=== PATIENT | female | born 1940 | race African-American/Black ===

== ENCOUNTER 2020-06-03 18:01 | Inpatient (IN) | payer OTHER ==
[~2020-06-03] VITALS: Ht 165.1 cm; Wt 70.0 kg
[2020-06-03 18:40] LABS: Basophils # (auto) 0 10 ^3/uL (0-0.2); Basophils % (auto) 0.6 % (0.0-2.0); Eosinophils # (auto) 0.2 10 ^3/uL (0-0.8); Eosinophils % (auto) 2.1 % (0.0-7.0); Hematocrit 41.3 % (36.0-46.0); Hemoglobin 13.5 g/dL (12.2-16.2); Lymphocytes # (auto) 1.4 10 ^3/uL (0.4-5.4); Lymphocytes % (auto) 18.6 % (10.0-50.0); Mean Corpuscular Hemoglobin 33.1 pg (28.0-32.0); Mean Corpuscular Hgb Conc. 32.7 g/dL (32.0-36.0); Mean Corpuscular Volume 101.2 fL (80.0-100.0); Monocytes # (auto) 0.5 10 ^3/uL (0-1.3); Monocytes % (auto) 6.6 % (0.0-12.0); Neutrophils # (auto) 5.3 10 ^3/uL (1.6-8.6); Neutrophils % (auto) 72.1 % (37.0-80.0); Nucleated Red Blood Cells % 0.1 %; Platelet Count (auto) 233 10^3/uL (140-450); Red Blood Cells 4.08 10^6/uL (4.0-5.20); Red Cell Distribution Width 13.5 % (11.8-14.3); White Blood Cell 7.4 10^3/uL (4.4-10.8)
[2020-06-03 19:31] LABS: Partial Thromboplastin Time 25.1 sec (23.0-31.2)
[2020-06-03 19:49] LABS: Albumin 3.7 g/dL (3.4-5.0); Calcium 9.3 mg/dL (8.5-10.1); Potassium 4.1 mmol/L (3.5-5.1)
[2020-06-03 19:54] LABS: BUN/Creatinine Ratio 24.5; Bilirubin, Total 0.5 mg/dL (0.2-1.0); Total Protein 7.3 g/dL (6.4-8.2)
[2020-06-04] MEDS ORDERED: HYDROcodone-ACET 5/325MG TAB PO PRN (02:15)
[2020-06-04] MEDS ORDERED: NITROGLYCERIN 0.4 MG SL TAB SL PRN (02:15)
[2020-06-04] MEDS ORDERED: DOCUSATE SOD 100 MG CAP PO PRN (02:15)
[2020-06-04] MEDS ORDERED: SODIUM CHLORIDE 0.9% 1,000 ML IV SCH (02:15)
[2020-06-04] MEDS ORDERED: ONDANSETRON HCL 4 MG/2 ML VIAL IV PRN (02:15)
[2020-06-04] MEDS ORDERED: MORPHINE SULF INJ 2 MG/ML SYRINGE 1ML IV PRN ×2 (02:15→13:15)
[2020-06-04] MEDS ORDERED: ACETAMINOPHEN 325 MG TAB PO PRN (02:15)
[2020-06-04] MEDS ORDERED: MORPHINE SULFATE 4 MG/ML SYR/VIAL IV PRN (02:15)
[2020-06-04 04:00] LABS: Basophils # (auto) 0 10 ^3/uL (0-0.2); Basophils % (auto) 0.4 % (0.0-2.0); Eosinophils # (auto) 0.1 10 ^3/uL (0-0.8); Eosinophils % (auto) 1.6 % (0.0-7.0); Hematocrit 38.7 % (36.0-46.0); Hemoglobin 12.9 g/dL (12.2-16.2); Lymphocytes # (auto) 1.4 10 ^3/uL (0.4-5.4); Lymphocytes % (auto) 15.7 % (10.0-50.0); Mean Corpuscular Hemoglobin 33.8 pg (28.0-32.0); Mean Corpuscular Hgb Conc. 33.4 g/dL (32.0-36.0); Mean Corpuscular Volume 101.3 fL (80.0-100.0); Monocytes # (auto) 0.6 10 ^3/uL (0-1.3); Monocytes % (auto) 6.6 % (0.0-12.0); Neutrophils # (auto) 6.9 10 ^3/uL (1.6-8.6); Neutrophils % (auto) 75.7 % (37.0-80.0); Nucleated Red Blood Cells % 0.1 %; Platelet Count (auto) 216 10^3/uL (140-450); Red Blood Cells 3.83 10^6/uL (4.0-5.20); Red Cell Distribution Width 13.6 % (11.8-14.3); White Blood Cell 9.2 10^3/uL (4.4-10.8)
[2020-06-04 04:17] LABS: Potassium 3.1 mmol/L (3.5-5.1)
[2020-06-04 04:21] LABS: Albumin 3.3 g/dL (3.4-5.0); BUN/Creatinine Ratio 23.2
[2020-06-04 04:59] LABS: Bilirubin, Total 0.6 mg/dL (0.2-1.0); Total Protein 6.5 g/dL (6.4-8.2)
[2020-06-04] MEDS ORDERED: PANTOPRAZOLE 40 MG/10 ML VIAL INJ IV SCH (10:00)
--- NOTE | 2020-06-04 13:15 | NUR ---
Telemetry admit from ER JOSEFINA WILLIS admitted to Telemetry unit after verbal report received. Patient oriented to Jessika Mendenhall, primary RN, unit, room, bed, and unit policies regarding patient care and visiting hours. Patient is awake, alert and oriented X4. No signs or symptoms of shortness of breath, discomfort or pain. Patient now on continuous telemetry monitoring, tele box # 68, sinus bradycardia @ 54 bpm. IV to right forearm, 20 gauge, patent and saline locked. Bed locked, in lowest position ,call light within reach, all questions and concerns addressed, patient verbalized understanding.
--- NOTE | 2020-06-04 13:43 | NUR ---
ROUNDS Dr Yeh at bedside for rounds, new orders received and followed through. Patient updated on plan of care, verbalized understanding.
[2020-06-04] MEDS ORDERED: HCTZ25T PO (13:56)
[2020-06-04] MEDS ORDERED: ATOR1TAB PO (13:56)
[2020-06-04] MEDS ORDERED: ATEN50TA PO (13:56)
[2020-06-04] MEDS ORDERED: POTA10TA32 PO (14:18)
[2020-06-04] MEDS ORDERED: hydrALAZINE HCL 25 MG TAB PO ONE (14:30)
[2020-06-04] MEDS ORDERED: POTASSIUM CHL 10 Meq TABLET PO ONE (14:30)
[2020-06-04] MEDS: POTASSIUM CHL 20MEQ/100ML 100 ML IV SCH ×2 (14:56→15:30)
[2020-06-04 17:00] VITALS: BP 152/83
[2020-06-04] MEDS ORDERED: POTASSIUM CHL 20 Meq TABLET PO ONE (17:30)
[2020-06-04 18:19] VITALS: BP 152/83
[2020-06-04] MEDS ORDERED: ATORVASTATIN 20 MG TAB PO SCH (22:00)
[2020-06-05] MEDS ORDERED: POTASSIUM CHL 10 Meq TABLET PO SCH (10:00)
[2020-06-05] MEDS ORDERED: HCTZ 25 MG TAB PO SCH (10:00)
== END 2020-06-04 19:00 | disposition home or self-care (01) | DRG 378 ==
LOC: ER 18:01 → TELE 18:02 → TELE-WESTW 06-04 12:52
PROVIDERS: ADMIT Nurse Practitioner Family; ATTEND Nurse Practitioner Family
DX: K92.1 Melena (principal); J98.11 Atelectasis; E78.5 Hyperlipidemia, unspecified; E87.6 Hypokalemia; F17.210 Nicotine dependence, cigarettes, uncomplicated; I10 Essential (primary) hypertension; N28.1 Cyst of kidney, acquired; N83.9 Noninflammatory disorder of ovary, fallopian tube and broad ligament, unspecified; N94.89 Other specified conditions associated with female genital organs and menstrual cycle; Z91.041 Radiographic dye allergy status; Z91.013 Allergy to seafood; Z79.899 Other long term (current) drug therapy
CPT/HCPCS: 36415; 74176; 76856; 80053; 82378; 85025; 85610; 85730; 86304; 96361; 96374; C9113; G0378; J3480

== ENCOUNTER 2022-08-06 02:08 | Inpatient (IN) | payer OTHER, MEDICAID ==
[~2022-08-06] VITALS: Ht 170.2 cm; Wt 71.8 kg
[~2022-08-06 02:08] MED LIST: ATEN50TA PO; ATOR-47 PO; HYDR25TA5 PO; POTA10TA32 PO
[2022-08-06] MEDS ORDERED: SODIUM CHLORIDE 0.9% 1,000 ML IV ONE (03:15)
[2022-08-06 03:38] LABS: Basophils # (auto) 0 10 ^3/uL (0-0.2); Basophils % (auto) 0.4 % (0.0-2.0); Eosinophils # (auto) 0.1 10 ^3/uL (0-0.8); Eosinophils % (auto) 0.8 % (0.0-7.0); Hematocrit 39.7 % (36.0-46.0); Hemoglobin 13.4 g/dL (12.2-16.2); Lymphocytes # (auto) 1.1 10 ^3/uL (0.4-5.4); Lymphocytes % (auto) 10.1 % (10.0-50.0); Mean Corpuscular Hemoglobin 33.5 pg (28.0-32.0); Mean Corpuscular Hgb Conc. 33.8 g/dL (32.0-36.0); Mean Corpuscular Volume 99.1 fL (80.0-100.0); Monocytes # (auto) 0.6 10 ^3/uL (0-1.3); Monocytes % (auto) 5.4 % (0.0-12.0); Neutrophils # (auto) 9.3 10 ^3/uL (1.6-8.6); Neutrophils % (auto) 83.3 % (37.0-80.0); Red Blood Cells 4.01 10^6/uL (4.0-5.20); Red Cell Distribution Width 13.5 % (11.8-14.3); White Blood Cell 11.2 10^3/uL (4.4-10.8)
[2022-08-06 03:55] LABS: Albumin 3.7 g/dL (3.4-5.0); Calcium 8.9 mg/dL (8.5-10.1); Potassium 3.5 mmol/L (3.5-5.1)
[2022-08-06 03:58] LABS: BUN/Creatinine Ratio 20.8; Bilirubin, Total 0.4 mg/dL (0.2-1.0)
[2022-08-06 04:02] LABS: INR 0.95 (0.9-1.15); Partial Thromboplastin Time 25.5 sec (24.6-33.4)
[2022-08-06] MEDS ORDERED: PANTOPRAZOLE 40 MG/10 ML VIAL INJ IV ONE (08:15)
[2022-08-06] MEDS ORDERED: NITROGLYCERIN 0.4 MG SL TAB SL PRN (09:45)
[2022-08-06] MEDS ORDERED: MORPHINE SULFATE INJ 2 MG/ml SYRG IV PRN (09:45)
[2022-08-06] MEDS ORDERED: cefTRIAXone 1GM/50ML D5W 50 ML IV ONE (09:45)
[2022-08-06] MEDS ORDERED: metroNIDAZOLE 500MG/100ML 100 ML IV ONE (09:45)
[2022-08-06] MEDS ORDERED: LOSA-39 PO (10:07)
[2022-08-06] MEDS ORDERED: hydrALAZINE HCL 20 MG/ML VL IV PRN (10:30)
[2022-08-06 10:36] LABS: Cholesterol 126 mg/dL (< 200); HDL Cholesterol 77 mg/dL (40-59); LDL Cholesterol 49 mg/dL (< 100); Triglycerides 68 mg/dL (< 150)
[2022-08-06] MEDS: metroNIDAZOLE 500MG/100ML 100 ML IV SCH ×2 (12:14→18:21)
[2022-08-06 18:06] LABS: Hematocrit 35.8 % (36.0-46.0); Hemoglobin 12.4 g/dL (12.2-16.2)
[2022-08-06] MEDS ORDERED: ATORVASTATIN 20 MG TAB PO SCH (22:00)
[2022-08-06] MEDS ORDERED: TEMAZEPAM 15 MG CAP PO ONE (22:15)
[2022-08-06 22:47] VITALS: BP 139/81
[2022-08-06 23:04] VITALS: BP 139/81
[2022-08-07] MEDS: metroNIDAZOLE 500MG/100ML 100 ML IV SCH ×3 (02:27→18:00)
[2022-08-07 04:50] VITALS: BP 110/65
[2022-08-07 06:08] LABS: Basophils # (auto) 0 10 ^3/uL (0-0.2); Basophils % (auto) 0.3 % (0.0-2.0); Eosinophils # (auto) 0 10 ^3/uL (0-0.8); Eosinophils % (auto) 0.2 % (0.0-7.0); Lymphocytes # (auto) 0.9 10 ^3/uL (0.4-5.4); Monocytes # (auto) 0.4 10 ^3/uL (0-1.3); Monocytes % (auto) 5.3 % (0.0-12.0); Neutrophils # (auto) 6.8 10 ^3/uL (1.6-8.6); White Blood Cell 8.1 10^3/uL (4.4-10.8)
[2022-08-07 06:10] LABS: Hematocrit 34.2 % (36.0-46.0); Hemoglobin 11.9 g/dL (12.2-16.2); Lymphocytes % (auto) 11.1 % (10.0-50.0); Mean Corpuscular Hemoglobin 34.2 pg (28.0-32.0); Mean Corpuscular Hgb Conc. 34.7 g/dL (32.0-36.0); Mean Corpuscular Volume 98.7 fL (80.0-100.0); Neutrophils % (auto) 83.1 % (37.0-80.0); Red Blood Cells 3.46 10^6/uL (4.0-5.20); Red Cell Distribution Width 13.5 % (11.8-14.3)
[2022-08-07 06:23] LABS: Potassium 3.5 mmol/L (3.5-5.1)
[2022-08-07 06:36] LABS: Albumin 3.2 g/dL (3.4-5.0); BUN/Creatinine Ratio 23.8; Bilirubin, Total 0.7 mg/dL (0.2-1.0); Calcium 8.8 mg/dL (8.5-10.1); Total Protein 5.7 g/dL (6.4-8.2)
[2022-08-07 08:27] VITALS: BP 133/89
[2022-08-07] MEDS ORDERED: cefTRIAXone 1GM/50ML D5W 50 ML IV SCH (09:00)
[2022-08-07] MEDS ORDERED: LOSARTAN POTASSIUM 50 MG TAB PO SCH (10:00)
[2022-08-07] MEDS ORDERED: HCTZ 25 MG TAB PO SCH (10:00)
[2022-08-07] MEDS ORDERED: ATENOLOL 50 MG TAB PO SCH (10:00)
[2022-08-07] MEDS ORDERED: PATIENTS OWN MEDICATION (Losartan Potassium 1 TAB) PO SCH (10:00)
[2022-08-07] MEDS ORDERED: PATIENTS OWN MEDICATION (Potassium Chloride (Potassium Chloride ER) 10 MEQ) PO SCH (10:00)
[2022-08-07] MEDS ORDERED: PATIENTS OWN MEDICATION (Atorvastatin Calcium 1 TAB) PO SCH (10:00)
[2022-08-07] MEDS ORDERED: POTASSIUM CHL 10 Meq TABLET PO SCH (10:00)
[2022-08-07 12:43] VITALS: BP 133/81
[2022-08-07 13:49] LABS: Urine Bacteria FEW /hpf (None Seen); Urine Blood 3+ /uL (Negative); Urine Mucus FEW (None Seen); Urine Specific Gravity 1.014 (1.001-1.035); Urine WBC 3 /hpf (0 - 5)
[2022-08-07] MEDS ORDERED: LIDOCAINE VISCOUS 2% 15ML UD ONE (16:27)
[2022-08-07] MEDS ORDERED: MIDAZOLAM HCL 2MG/2ML 2ml VIAL (1mg/ml) ONE (16:29)
[2022-08-07] MEDS ORDERED: fentaNYL CITRATE 100 MCG/2 ML VL ONE (16:29)
[2022-08-07] MEDS: diphenhdrAMINE HCL 50 MG/1 ML VL ONE ×2 (16:49→16:55)
[2022-08-07] MEDS: MIDAZOLAM HCL 2MG/2ML 2ml VIAL (1mg/ml) ONE ×2 (16:49→16:56)
[2022-08-07] MEDS ORDERED: PANT40TA2 PO (17:01)
[2022-08-07] MEDS ORDERED: SUCR1TAB22 OR (17:22)
[2022-08-07 17:50] VITALS: BP 142/80
[2022-08-07 18:26] VITALS: BP 133/89
[2022-08-07] MEDS ORDERED: PANTOPRAZOLE 40 MG/10 ML VIAL INJ IV SCH (22:00)
== END 2022-08-07 20:05 | disposition home or self-care (01) | DRG 379 ==
LOC: ER 02:08 → TELE 09:38 → TELE-WESTW 22:41
PROVIDERS: ADMIT Registered Nurse; ATTEND Internal Medicine
PROC: 0DB48ZX Excision of Esophagogastric Junction, Via Natural or Artificial Opening Endoscopic, Diagnostic (ICD-10-PCS; principal; 2022-08-07 16:44)
DX: K29.01 Acute gastritis with bleeding (principal); K25.4 Chronic or unspecified gastric ulcer with hemorrhage; E78.5 Hyperlipidemia, unspecified; N83.201 Unspecified ovarian cyst, right side; N28.1 Cyst of kidney, acquired; I16.0 Hypertensive urgency; D72.829 Elevated white blood cell count, unspecified; E11.9 Type 2 diabetes mellitus without complications; E66.9 Obesity, unspecified; R19.00 Intra-abdominal and pelvic swelling, mass and lump, unspecified site; F17.210 Nicotine dependence, cigarettes, uncomplicated; I10 Essential (primary) hypertension; Z91.013 Allergy to seafood; Z20.822 Contact with and (suspected) exposure to COVID-19; K44.9 Diaphragmatic hernia without obstruction or gangrene
CPT/HCPCS: 36415; 43239; 71045; 74176; 76856; 80053; 80061; 81001; 82378; 83036; 83880; 84443; 84484; 85014; 85018; 85025; 85610; 85730; 86304; 86850; 86900; 86901; 87040; 87426; 93005; 93306; 96361; 96365; 96375; C9113; G0378; J0696; J2250; J3490

== ENCOUNTER 2023-01-29 12:59 | Day surgery (SDC) | payer OTHER, MEDICAID ==
[2023-01-27 09:34] LABS: Basophils # (auto) 0 10 ^3/uL (0-0.2); Basophils % (auto) 0.6 % (0.0-2.0); Eosinophils # (auto) 0.1 10 ^3/uL (0-0.8); Eosinophils % (auto) 1.3 % (0.0-7.0); Hematocrit 41.1 % (36.0-46.0); Hemoglobin 13.8 g/dL (12.2-16.2); Lymphocytes # (auto) 1.5 10 ^3/uL (0.4-5.4); Lymphocytes % (auto) 16.3 % (10.0-50.0); Mean Corpuscular Hemoglobin 33.1 pg (28.0-32.0); Mean Corpuscular Hgb Conc. 33.5 g/dL (32.0-36.0); Mean Corpuscular Volume 98.6 fL (80.0-100.0); Monocytes # (auto) 0.6 10 ^3/uL (0-1.3); Monocytes % (auto) 6.1 % (0.0-12.0); Neutrophils # (auto) 6.8 10 ^3/uL (1.6-8.6); Neutrophils % (auto) 75.7 % (37.0-80.0); Red Blood Cells 4.16 10^6/uL (4.0-5.20); Red Cell Distribution Width 13.6 % (11.8-14.3)
[2023-01-27 10:43] LABS: Albumin 3.4 g/dL (3.4-5.0); Potassium 3.4 mmol/L (3.5-5.1)
[2023-01-27 10:54] LABS: BUN/Creatinine Ratio 16.7 (10.0-20.0); Bilirubin, Total 0.7 mg/dL (0.2-1.0); Calcium 9.4 mg/dL (8.5-10.1); Total Protein 7.1 g/dL (6.4-8.2)
[2023-01-27 10:59] LABS: INR 1.03 (0.9-1.15); Partial Thromboplastin Time 26.2 SEC (24.5-34.5)
[~2023-01-29] VITALS: Ht 167.6 cm; Wt 74.4 kg
[~2023-01-29 12:59] MED LIST changes: +CHOL400C12 PO; +LOSA100T58 PO; +PANT40TA2 PO; +POTA-228 PO; -POTA10TA32 PO; +SUCR1TAB22 OR
[2023-01-29] MEDS ORDERED: LIDOCAINE VISCOUS 2% 15ML UD ONE (14:15)
[2023-01-29] MEDS: diphenhdrAMINE HCL 50 MG/1 ML VL ONE ×2 (15:01→15:12)
[2023-01-29] MEDS: MIDAZOLAM HCL 2MG/2ML 2ml VIAL (1mg/ml) ONE ×3 (15:01→15:18)
[2023-01-29] MEDS: fentaNYL CITRATE 100 MCG/2 ML VL ONE ×4 (15:01→15:12)
[2023-01-29 15:50] VITALS: BP 117/78
== END 2023-01-29 16:05 | disposition home or self-care (01) ==
LOC: GI 12:59
PROVIDERS: ATTEND Internal Medicine Gastroenterology
DX: K25.7 Chronic gastric ulcer without hemorrhage or perforation (principal); K31.1 Adult hypertrophic pyloric stenosis; K29.50 Unspecified chronic gastritis without bleeding
CPT/HCPCS: 36415; 43239; 43249; 80053; 85025; 85610; 85730; C1726; J1200; J2250; J3010; J7030

== ENCOUNTER → 2023-08-13 | Day surgery (SDC) | payer OTHER, MEDICAID ==
[2023-08-11 10:49] LABS: Basophils # (auto) 0.1 10 ^3/uL (0-0.2); Basophils % (auto) 0.8 % (0.0-2.0); Eosinophils # (auto) 0.1 10 ^3/uL (0-0.8); Eosinophils % (auto) 1.6 % (0.0-7.0); Hematocrit 43.7 % (36.0-46.0); Hemoglobin 14.6 g/dL (12.2-16.2); Lymphocytes # (auto) 1.3 10 ^3/uL (0.4-5.4); Lymphocytes % (auto) 17.1 % (10.0-50.0); Mean Corpuscular Hemoglobin 33.5 pg (28.0-32.0); Mean Corpuscular Hgb Conc. 33.4 g/dL (32.0-36.0); Mean Corpuscular Volume 100.1 fL (80.0-100.0); Monocytes # (auto) 0.4 10 ^3/uL (0-1.3); Monocytes % (auto) 4.8 % (0.0-12.0); Neutrophils # (auto) 5.7 10 ^3/uL (1.6-8.6); Neutrophils % (auto) 75.7 % (37.0-80.0); Red Blood Cells 4.36 10^6/uL (4.0-5.20); Red Cell Distribution Width 13.8 % (11.8-14.3); White Blood Cell 7.6 10^3/uL (4.4-10.8)
[2023-08-11 11:09] LABS: Alanine Aminotransferase 24 U/L (7-40); Albumin 4.2 g/dL (3.2-4.8); Alkaline Phosphatase 86 U/L (46-116); Anion Gap 7 (5-15); Aspartate Aminotransferase 25 U/L (13-40); BUN/Creatinine Ratio 11.5 (10.0-20.0); Blood Urea Nitrogen 11 mg/dL (9-23); Calcium 9.9 mg/dL (8.5-10.1); Carbon Dioxide 30 mmol/L (20-30); Chloride 106 mmol/L (98-107); Glucose 109 mg/dL (74-106); Potassium 3.8 mmol/L (3.5-5.1); Sodium 143 mmol/L (136-145)
[2023-08-11 11:10] LABS: Bilirubin, Total 0.8 mg/dL (0.2-1.0); Total Protein 7.2 g/dL (5.7-8.2)
[2023-08-11 11:40] LABS: INR 1.03 (0.9-1.15); Partial Thromboplastin Time 25.1 SEC (24.5-34.5); Prothrombin Time 10.8 sec (9.3-11.8)
[~2023-08-13] VITALS: Ht 170.2 cm; Wt 68.9 kg
[~2023-08-13] MED LIST changes: +LIDOCAINE VISCOUS 2% 15ML UD ONE; +SODIUM CHLORIDE LOCK 10 ML ONE
[2023-08-13 14:05] VITALS: O2SAT 100
[2023-08-13] MEDS: MIDAZOLAM HCL 5 MG/ML-1ML VIAL ONE ×2 (14:12→14:15)
[2023-08-13] MEDS: fentaNYL CITRATE 100 MCG/2 ML VL ONE ×3 (14:12→14:19)
[2023-08-13] MEDS: diphenhdrAMINE HCL 50 MG/1 ML VL ONE ×2 (14:12→14:15)
[2023-08-13 14:35] VITALS: PULSE 52; RESP 17; TEMP 98.1; O2SAT 100
[2023-08-13 15:35] VITALS: BP 156/89; PULSE 54; RESP 20; O2SAT 97
== END | disposition home or self-care (01) ==
LOC: GI 12:29
PROVIDERS: ATTEND Internal Medicine Gastroenterology
DX: K25.7 Chronic gastric ulcer without hemorrhage or perforation (principal); K29.50 Unspecified chronic gastritis without bleeding; K22.2 Esophageal obstruction; K44.9 Diaphragmatic hernia without obstruction or gangrene; K31.84 Gastroparesis; I10 Essential (primary) hypertension; E78.5 Hyperlipidemia, unspecified; F17.210 Nicotine dependence, cigarettes, uncomplicated; Z88.5 Allergy status to narcotic agent; Z91.013 Allergy to seafood; Z91.041 Radiographic dye allergy status; Z79.899 Other long term (current) drug therapy; Z98.890 Other specified postprocedural states
CPT/HCPCS: 36415; 43239; 43249; 80053; 85025; 85610; 85730; 88305; 88312; 88342; C1726; J1200; J2250; J3010; J7030; 99152

== ENCOUNTER 2024-01-22 09:50 | Emergency (ER) | payer OTHER, MEDICAID ==
[~2024-01-22] VITALS: Ht 167.6 cm; Wt 68.0 kg
[~2024-01-22 09:50] MED LIST changes: -LIDOCAINE VISCOUS 2% 15ML UD ONE; +LOSA-535 PO; -LOSA100T58 PO; -SODIUM CHLORIDE LOCK 10 ML ONE; -SUCR1TAB22 OR; +SUCR1TAB31 OR
[2024-01-22 10:00] VITALS: PULSE 61; RESP 15; O2SAT 97
[2024-01-22 11:18] LABS: Basophils # (auto) 0 10 ^3/uL (0-0.2); Basophils % (auto) 0.4 % (0.0-2.0); Eosinophils # (auto) 0.1 10 ^3/uL (0-0.8); Eosinophils % (auto) 0.9 % (0.0-7.0); Hematocrit 40.9 % (36.0-46.0); Hemoglobin 13.9 g/dL (12.2-16.2); Lymphocytes % (auto) 11.7 % (10.0-50.0); Mean Corpuscular Hemoglobin 33.2 pg (28.0-32.0); Mean Corpuscular Volume 97.6 fL (80.0-100.0); Monocytes # (auto) 0.5 10 ^3/uL (0-1.3); Monocytes % (auto) 5.9 % (0.0-12.0); Neutrophils # (auto) 6.8 10 ^3/uL (1.6-8.6); Neutrophils % (auto) 81.1 % (37.0-80.0); Red Blood Cells 4.19 10^6/uL (4.0-5.20); White Blood Cell 8.4 10^3/uL (4.4-10.8)
[2024-01-22] MEDS: SODIUM CHLORIDE 0.9% 1,000 ML IV ONE (11:29)
[2024-01-22 11:37] LABS: Urine Bacteria FEW /hpf (None Seen); Urine Blood TRACE /uL (Negative); Urine Clarity Clear (Clear); Urine Color Light-Yellow (Yellow); Urine Protein, UAD 1+ (Negative); Urine Specific Gravity 1.034 (1.001-1.035); Urine Urobilinogen Normal (Negative); Urine WBC 3 /hpf (0 - 5)
[2024-01-22 11:42] LABS: Alanine Aminotransferase 16 U/L (7-40); Albumin 3.9 g/dL (3.2-4.8); Alkaline Phosphatase 101 U/L (46-116); Anion Gap 4 (5-15); Aspartate Aminotransferase 13 U/L (13-40); BUN/Creatinine Ratio 17.7 (10.0-20.0); Blood Urea Nitrogen 20 mg/dL (9-23); Carbon Dioxide 29 mmol/L (20-30); Chloride 107 mmol/L (98-107); Potassium 3.7 mmol/L (3.5-5.1); Sodium 140 mmol/L (136-145); Total Protein 6.6 g/dL (5.7-8.2)
[2024-01-22 12:24] LABS: Glucose 410 mg/dL (74-106)
[2024-01-22 12:29] LABS: Lipase 40 U/L (12-53)
[2024-01-22 12:53] LABS: INR 1.03 (0.9-1.15); Prothrombin Time 10.9 sec (9.3-11.8)
[2024-01-22 13:44] VITALS: BP 148/86; PULSE 74; RESP 19; TEMP 97.8; O2SAT 96
== END 2024-01-22 14:05 | disposition admitted as inpatient to this hospital (09) ==
LOC: EDBD 09:50 → EDUNIT# 09:50 → ER 09:50
DX: I60.9 Nontraumatic subarachnoid hemorrhage, unspecified (principal); I10 Essential (primary) hypertension; D49.59 Neoplasm of unspecified behavior of other genitourinary organ; E11.9 Type 2 diabetes mellitus without complications; E78.5 Hyperlipidemia, unspecified; K21.9 Gastro-esophageal reflux disease without esophagitis; Z79.899 Other long term (current) drug therapy; Z88.9 Allergy status to unspecified drugs, medicaments and biological substances; Z91.041 Radiographic dye allergy status; Z91.013 Allergy to seafood
CPT/HCPCS: 36415; 70450; 71045; 74176; 80053; 81001; 83690; 84484; 85025; 85610; 93005; 96361; 96365; 99291; J7030